=== PATIENT | male | born 1950 | race Hispanic/Latino ===

== ENCOUNTER 2018-02-16 14:31 | Inpatient (IN) | payer MEDICARE, BC ==
[~2018-02-16] VITALS: Ht 167.6 cm; Wt 66.2 kg
--- OUTSIDE RECORDS SUMMARY | 2018-02-16 14:33 | XMS REPORT ---
Author Author [facility] Address Unknown Phone Unavailable Care Team Providers Care Picking Tech Name Role Phone Unavailable Unavailable Payers Payer Name Policy Type Policy Number Effective Date Expiration Date Problems This patient has no known problems. Allergies, Adverse Reactions, Alerts Allergy Name Allergy Type Status Severity Reaction(s) Onset Date Inactive Date Treating Clinician Comments No Known Allergies DA Active U 2015-12-08 00:00:00 Medications This patient has no known medications.
[2018-02-16 15:41] LABS: BASOPHILS % 0.2 % (0.0-1.0); EOSINOPHILS # (AUTO) 0.1 (0.0-0.4); EOSINOPHILS % 0.9 % (0.0-6.0); LYMPHOCYTES # (AUTO) 1.2 (1.0-3.2); LYMPHOCYTES % 7.8 % (18.0-39.1); MEAN CORPUSCULAR HEMOGLOBIN 29.7 pg (28-32); MEAN CORPUSCULAR HGB CONC 32.1 g/dL (31-35); MEAN CORPUSCULAR VOLUME 92.4 fL (81-99); MONOCYTES # (AUTO) 1.2 (0.2-0.8); MONOCYTES % 8.2 % (4.4-11.3); NEUTROPHILS # (AUTO) 12.4 (2.1-6.9); NEUTROPHILS % 82.2 % (38.7-80.0); PLATELET COUNT 381 x10e3/uL (140-360); RED BLOOD COUNT 3.03 x10e6/uL (4.3-5.7); RED CELL DISTRIBUTION WIDTH 13.9 % (11.7-14.4)
[2018-02-16] MEDS ORDERED: GLIPIZIDE10 MG PO (15:51)
[2018-02-16] MEDS ORDERED: FERROUS SULFAT325 MG PO (15:51)
[2018-02-16] MEDS ORDERED: PANTOPRAZOLE SO40 MG PO (15:51)
[2018-02-16] MEDS ORDERED: LOPRESSOR25 MG PO (15:51)
[2018-02-16] MEDS ORDERED: ATORVASTATIN CA40 MG PO (15:51)
[2018-02-16] MEDS ORDERED: JENTADUETO 2.51 EAC2 PO (15:51)
[2018-02-16] MEDS ORDERED: CLOPIDOGREL75 MG PO (15:51)
[2018-02-16] MEDS ORDERED: LISINOPRIL2.5 MG PO (15:51)
[2018-02-16] MEDS ORDERED: PRASUGREL PO (15:51)
[2018-02-16] MEDS ORDERED: LEVEMIR (15:51)
[2018-02-16 15:52] LABS: INR 1.1; PROTHROMBIN TIME 15.2 seconds (11.9-14.5)
[2018-02-16 15:53] LABS: PARTIAL THROMBOPLASTIN TIME 28.1 seconds (23.8-35.5)
[2018-02-16 16:04] LABS: ALBUMIN 2.9 g/dL (3.5-5.0); ALBUMIN/GLOBULIN RATIO 0.7 (0.8-2.0); ANION GAP 14.3 mmol/L (8-16); CALCIUM 8.9 mg/dL (8.4-10.2); CREATININE, SERUM 1.33 mg/dL (0.72-1.25); POTASSIUM 4.3 mmol/L (3.5-5.1)
[2018-02-16 16:13] LABS: CREATINE KINASE MB 0.9 ng/mL (0-5.0)
--- NOTE | 2018-02-16 16:40 | Diagnostic Imaging Report ---
Examination: Upright chest, upright and supine abdominal radiographs COMPARISON: None. INDICATION: Fall, left flank pain, recent endoscopy DISCUSSION: Chest: Lungs are well-inflated. Coarse reticular opacities throughout the lungs. No focal consolidation. Cardiomediastinal contour is notable for tortuosity and atherosclerotic calcification of the thoracic aorta. No pulmonary edema. No free air under the diaphragm. Abdomen: The bowel gas pattern shows a few mildly dilated loops of small bowel in the central abdomen to a maximum caliber of 3.3 cm. Gas and fecal material is noted throughout the large bowel. No mass effect or organomegaly. Atherosclerotic vascular calcifications. Surgical clips project over the medial hips. Degenerative disc changes of the lumbar spine with otherwise intact regional skeletal structures. IMPRESSION: Mildly dilated loops of small bowel in the central abdomen likely represent ileus in the presence of gas and fecal material throughout the large bowel. No pneumoperitoneum. No acute cardiopulmonary abnormality. Suspected pulmonary fibrotic changes. Signed by: Dr. Trevor Felix M.D. on 02/16/2018 4:37 PM
[2018-02-16] MEDS ORDERED: SODIUM CHLORIDE 0.9% 1000ML 1,000 ML IV SCH (17:00)
[2018-02-16] MEDS: SODIUM CHLORIDE 0.9% 1000ML 1,000 ML IV SCH ×2 (17:33→22:01)
[2018-02-16 17:42] LABS: CLARITY,URINE SL CLOUDY (CLEAR); COLOR,URINE STRAW (YELLOW); LEUKOCYTE ESTERASE ,URINE NEGATIVE (NEGATIVE); NITRITE,URINE NEGATIVE (NEGATIVE)
[2018-02-16 17:43] LABS: BILIRUBIN,URINE NEGATIVE (NEGATIVE); KETONES,URINE NEGATIVE (NEGATIVE); PROTEIN,URINE DIPSTICK 1+ (NEGATIVE); URINE UROBILINOGEN 0.2 mg/dL (0.2 - 1)
[2018-02-16] MEDS ORDERED: DEXTROSE 50% SYRINGE 50 ML IV PRN (17:45)
[2018-02-16 18:09] LABS: AMORPHOUS SEDIMENT,URINE MODERATE (FEW); BACTERIA,URINE MANY /HPF
[2018-02-16 18:26] LABS: HEMATOCRIT 24.7 % (38.2-49.6)
[2018-02-16] MEDS ORDERED: PANTOPRAZOLE INJ 40 MG in SODIUM CHLORIDE 0.9% 50ML 50 ML IV SCH (20:15)
[2018-02-16] MEDS ORDERED: SODIUM CHLORIDE 0.9% 250ML 250 ML IV ONE (20:15)
[2018-02-16] MEDS ORDERED: INSULIN REGULAR, HUMAN 100 UNIT/1 ML 3ML VIAL SQ SCH (21:00)
[2018-02-16] MEDS: PANTOPRAZOLE INJ 40 MG in SODIUM CHLORIDE 0.9% 50ML 50 ML IV SCH (21:00)
[2018-02-16] MEDS ORDERED: METRONIDAZOLE 500MG/NS 100ML 100 ML IV SCH (21:00)
[2018-02-16 21:40] VITALS: BP 96/67
--- NOTE | 2018-02-16 21:40 | NUR ---
RECEIVED PT VIA W/C FROM ER, REPORT GIVEN BY ALLY HUBBARD FROM ER, PT MADE COMFORTABLE IN BED, DENIES PAIN AND DISCOMFORTS , ORIENTED TO SURROUNDINGS IN ROOM, AND CALL YATES SYSTEM. PT AAOX3, BREATHING EVEN AND UNLABORED ON ROOM AIR, HOWEVER B/P LOW, PT TO RECEIVE NS @ 125 AND 2 UNITS OF BLOOD.
[2018-02-16 22:00] VITALS: BP 95/56
[2018-02-17] VITALS (34 sets, daily range): BP systolic 73–115; BP diastolic 49–79
[2018-02-17] MEDS ORDERED: PANTOPRAZOLE 40 MG 10ML VIAL ONE ×2 (00:19→09:13)
[2018-02-17 01:14] LABS: HEMATOCRIT 24.5 % (38.2-49.6)
[2018-02-17] MEDS ORDERED: SODIUM CHLORIDE 0.9% 250ML 250 ML ONE ×2 (01:15→04:55)
--- NOTE | 2018-02-17 04:30 | NUR ---
PT DEVELOPED LOW GRADE TEMP POST BLOOD TRANSFUSIONOF 100.0, PUT A PAGE INTO DR. DE LEON [facility] TO INFORM THEM OF LOW GRADE TEMP.
--- NOTE | 2018-02-17 04:39 | NUR ---
JOSE FROM DR. DE LEON [facility] GAVE ORDER TO PROCEED WITH SECOND UNIT OF BLOOD
[2018-02-17 05:13] LABS: HEMATOCRIT 25.4 % (38.2-49.6); HEMOGLOBIN 8.5 g/dL (14.0-18.0)
--- NOTE | 2018-02-17 05:30 | NUR ---
SECOND UNIT OF BLOOD HANGING, PT TOLERATING WELL, STATES SOME PAIN TO HIS HIP FROM FALL AT HOME, OK WHEN REPOSITIONED.
[2018-02-17] MEDS: PANTOPRAZOLE INJ 40 MG in SODIUM CHLORIDE 0.9% 50ML 50 ML IV SCH ×5 (05:45→20:44)
--- NOTE | 2018-02-17 06:15 | Diagnostic Imaging Report ---
ABDOMEN-1VIEW (KUB) Clinical history: Possible ileus, resolution Technique: AP view abdomen Comparison: Previous day Findings: Hemidiaphragms are excluded from view. No significant gaseous distention of bowel. No evidence of free air. Vascular calcifications. Faint amorphous calcifications again seen of the left upper abdomen. Impression: No evidence of obstruction or ileus. Signed by: Dr Milagro eWbb MD on 02/17/2018 6:12 AM
--- NOTE | 2018-02-17 07:15 | NUR ---
REPORTED OFF TO HAYDEE MANNING, PT CONTINUES WITH BLOOD TRANSFUSION, TOLERATING WELL NO REACTION ON MY SHIFT.
[2018-02-17] MEDS ORDERED: DEXTROSE 50% SYRINGE 50 ML IV PRN (07:45)
[2018-02-17] MEDS ORDERED: HYDRALAZINE HCL 20 MG/ML VIAL IV PRN (08:00)
[2018-02-17] MEDS ORDERED: ONDANSETRON HCL INJ 2 MG/ML VIAL IV PRN (08:00)
--- NOTE | 2018-02-17 08:25 | NUR ---
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
[2018-02-17] MEDS ORDERED: CEFTRIAXONE SOD 1 GM VIAL IV SCH (08:30)
[2018-02-17] MEDS: GLIPIZIDE 5 MG TAB PO SCH ×2 (08:30→16:27)
[2018-02-17] MEDS: METOPROLOL TARTRATE 25 MG TAB PO SCH ×2 (08:48→17:00)
[2018-02-17] MEDS ORDERED: LISINOPRIL 2.5 MG TAB PO SCH (09:00)
[2018-02-17] MEDS ORDERED: NON-FORMULARY MEDICATION (Atorvastatin Calcium 40 MG) PO SCH (09:00)
[2018-02-17] MEDS ORDERED: CIPROFLOXACIN 400 MG/D5W 200ML 200 ML IV SCH (09:00)
[2018-02-17] MEDS ORDERED: PANTOPRAZOLE 40 MG 10ML VIAL IV SCH (09:00)
[2018-02-17] MEDS ORDERED: NON-FORMULARY MEDICATION (Glipizide 10 MG) PO SCH (09:00)
[2018-02-17] MEDS: METRONIDAZOLE 500MG/NS 100ML 100 ML IV SCH ×2 (09:15→17:40)
[2018-02-17] MEDS: ACETAMINOPHEN 325 MG TAB PO PRN (09:19)
[2018-02-17] MEDS: SODIUM CHLORIDE 0.9% 1000ML 1,000 ML IV SCH ×2 (09:33→17:40)
[2018-02-17 10:26] LABS: HEMATOCRIT 29.7 % (38.2-49.6); HEMOGLOBIN 10.1 g/dL (14.0-18.0); MEAN CORPUSCULAR HEMOGLOBIN 30.9 pg (28-32); MEAN CORPUSCULAR VOLUME 90.8 fL (81-99); NEUTROPHILS % 72.7 % (38.7-80.0); PLATELET COUNT 321 x10e3/uL (140-360); RED BLOOD COUNT 3.27 x10e6/uL (4.3-5.7); RED CELL DISTRIBUTION WIDTH 13.9 % (11.7-14.4)
[2018-02-17 10:27] LABS: BASOPHILS % 0.2 % (0.0-1.0); EOSINOPHILS # (AUTO) 0.5 (0.0-0.4); EOSINOPHILS % 4.6 % (0.0-6.0); LYMPHOCYTES # (AUTO) 1.5 (1.0-3.2); LYMPHOCYTES % 12.6 % (18.0-39.1); MONOCYTES # (AUTO) 1.1 (0.2-0.8); MONOCYTES % 9.3 % (4.4-11.3); NEUTROPHILS # (AUTO) 8.3 (2.1-6.9)
[2018-02-17 10:44] LABS: ANION GAP 10.1 mmol/L (8-16); CARBON DIOXIDE 22 mmol/L (22-29); CHLORIDE 110 mmol/L (98-107); POTASSIUM 4.1 mmol/L (3.5-5.1); SODIUM 138 mmol/L (136-145)
[2018-02-17 10:45] LABS: BLOOD UREA NITROGEN 13 mg/dL (7-26); BUN/CREATININE RATIO 12 (6-25); CREATININE, SERUM 1.11 mg/dL (0.72-1.25); EST GLOMERULAR FILTRATION RATE > 60 ML/MIN (60-); GLUCOSE 119 mg/dL (74-118)
[2018-02-17] MEDS: INSULIN LISPRO 100 UNIT/1 ML 3ML VIAL SQ SCH ×3 (11:30→21:00)
--- NOTE | 2018-02-17 11:34 | Diagnostic Imaging Report ---
History:Dizziness Comparison studies:None Technique: Axial images were obtained from the skull base to the vertex. Coronal and sagittal images reconstructed from the axial data. Intravenous contrast: None Dose modulation, iterative reconstruction, and/or weight based adjustment of the mA/kV was utilized to reduce the radiation dose to as low as reasonably achievable. Findings: Scalp/skull: No abnormalities. Extra-axial spaces: No masses. No fluid collections. Brain sulci: Mildly prominent. Ventricles: Mild compensatory dilatation. No hydrocephalus. Parenchyma: Few hypodensities in the supratentorial white matter are small vessel ischemic changes. Punctate calcifications at the right anterior caudate head, left hippocampus, right subcallosal and left fusiform gyri, likely related to remote inflammation. No masses, hemorrhage, acute or chronic cortical vascular insults. Sellar/suprasellar region: No abnormalities. Craniocervical junction: Patent foramen magnum. No Chiari one malformation. Incidental findings: Atherosclerotic calcifications in the carotid siphons . Impression: No acute abnormalities. Chronic findings: 1. Mild age-appropriate generalized volume loss. 2. Mild supratentorial white matter small vessel ischemic changes. Signed by: DR Gerson Vu M.D. on 02/17/2018 11:30 AM
--- NOTE | 2018-02-17 12:05 | Diagnostic Imaging Report ---
Exam: Left hip radiographs, 2 views, AP radiograph of the pelvis, left femur radiographs 4 views History: Status post fall. Comparison: KUB 02/17/2018. Findings: Bones are well-mineralized. No evidence of acute fracture involving the pelvis or left hip. Bony alignment is unremarkable. Bowel gas partially obscures visualization of the sacrum. Mild degenerative changes of bilateral hips, sacroiliac joints, and lower lumbar spine. There are surgical clips which project over the bilateral groins. There are diffuse vascular calcifications. Additional images of the left femur demonstrates no evidence of acute fracture, malalignment, or soft tissue abnormality. Impression: No evidence of acute radiographic abnormality involving the pelvis, left hip, or left femur. Signed by: Dr. Savana Parry MD on 02/17/2018 12:02 PM
[2018-02-17] MEDS: CEFTRIAXONE SOD 1 GM/NS 50 ML 50 ML IV SCH (12:15)
[2018-02-17] MEDS: CIPROFLOXACIN 400 MG/D5W 200ML 200 ML IV SCH ×2 (12:56→21:48)
[2018-02-17 13:26] LABS: BILIRUBIN,URINE NEGATIVE (NEGATIVE); CLARITY,URINE CLEAR (CLEAR); COLOR,URINE YELLOW (YELLOW); KETONES,URINE TRACE (NEGATIVE); LEUKOCYTE ESTERASE ,URINE TRACE (NEGATIVE); NITRITE,URINE NEGATIVE (NEGATIVE); PROTEIN,URINE DIPSTICK 1+ (NEGATIVE); URINE UROBILINOGEN 0.2 mg/dL (0.2 - 1)
[2018-02-17 13:39] LABS: BACTERIA,URINE FEW /HPF; EPITHELIAL CELLS,URINE RARE /LPF; RBC,URINE 0-5 /HPF (0-5); WBC,URINE (MAN) 0-5 /HPF (0-5)
[2018-02-17 16:30] LABS: HEMATOCRIT 30.1 % (38.2-49.6)
--- NOTE | 2018-02-17 19:30 | NUR ---
PATIENT ASSISTED TO THE RESTROOM, HE'S NOW BACK IN BED WITH ACUTE DISTRESS. ABDOMEN SOFT, PATIENT DENIES ABDOMINAL PAIN. SKIN INTEGRITY INTACT WITH PSORIATIC LESIONS TO THE ELBOWS, KNEES, LEGS AND LEFT ARM. CALL LIGHT WITHIN EASY REACH, INSTRUCTED TO CALL FOR ASSISTANCE NEEDED.
[2018-02-17] MEDS: ATORVASTATIN 40 MG TAB PO SCH (21:48)
[2018-02-17 22:35] LABS: HEMATOCRIT 29.8 % (38.2-49.6)
--- NOTE | 2018-02-17 23:11 | NUR ---
CLEAR LIQUID DIET STARTED ORDERED BY DR. Rowena TERAN, THE PATIENT TOLERATED THE WARM BROTH AND APPLE JUICE WITHOUT NAUSEA/VOMITING OR ABDOMINAL PAIN. CALL LIGHT WITHIN EASY REACH, INSTRUCTED TO CALL FOR ASSISTANCE NEEDED.
[2018-02-18] VITALS (39 sets, daily range): BP systolic 56–112; BP diastolic 44–92
[2018-02-18] MEDS: METRONIDAZOLE 500MG/NS 100ML 100 ML IV SCH ×3 (01:15→16:42)
[2018-02-18] MEDS: PANTOPRAZOLE INJ 40 MG in SODIUM CHLORIDE 0.9% 50ML 50 ML IV SCH ×4 (01:26→19:45)
--- NOTE | 2018-02-18 03:30 | NUR ---
PATIENT ASLEEP, HE'S EASY TO AROUSE. HE DENIES ABDOMINAL PAIN, NAUSEA AND VOMITING. CALL LIGHT WITHIN EASY REACH, INSTRUCTED TO CALL FOR ASSISTANCE NEEDED.
[2018-02-18 03:56] LABS: BASOPHILS % 0.4 % (0.0-1.0); EOSINOPHILS # (AUTO) 0.5 (0.0-0.4); EOSINOPHILS % 5.5 % (0.0-6.0); HEMOGLOBIN 9.7 g/dL (14.0-18.0); LYMPHOCYTES # (AUTO) 1.2 (1.0-3.2); LYMPHOCYTES % 13.7 % (18.0-39.1); MEAN CORPUSCULAR HGB CONC 33.4 g/dL (31-35); MEAN CORPUSCULAR VOLUME 89.8 fL (81-99); MONOCYTES # (AUTO) 0.9 (0.2-0.8); MONOCYTES % 9.7 % (4.4-11.3); NEUTROPHILS # (AUTO) 6.3 (2.1-6.9); NEUTROPHILS % 70.1 % (38.7-80.0); PLATELET COUNT 308 x10e3/uL (140-360); RED BLOOD COUNT 3.23 x10e6/uL (4.3-5.7); RED CELL DISTRIBUTION WIDTH 14.1 % (11.7-14.4)
[2018-02-18 04:12] LABS: ANION GAP 11.9 mmol/L (8-16); BLOOD UREA NITROGEN 12 mg/dL (7-26); BUN/CREATININE RATIO 11 (6-25); CALCIUM 7.9 mg/dL (8.4-10.2); CARBON DIOXIDE 20 mmol/L (22-29); CHLORIDE 110 mmol/L (98-107); EST GLOMERULAR FILTRATION RATE > 60 ML/MIN (60-); GLUCOSE 154 mg/dL (74-118); MAGNESIUM 1.8 MG/DL (1.3-2.1); POTASSIUM 3.9 mmol/L (3.5-5.1); SODIUM 138 mmol/L (136-145)
[2018-02-18] MEDS: SODIUM CHLORIDE 0.9% 1000ML 1,000 ML IV SCH ×3 (04:43→17:33)
[2018-02-18] MEDS: GLIPIZIDE 5 MG TAB PO SCH ×2 (07:30→16:42)
[2018-02-18] MEDS: OYST-CAL-D 500MG TABLET PO SCH ×2 (08:26→16:42)
[2018-02-18] MEDS: INSULIN LISPRO 100 UNIT/1 ML 3ML VIAL SQ SCH ×4 (08:35→21:41)
--- NOTE | 2018-02-18 08:35 | Diagnostic Imaging Report ---
EXAMINATION: CHEST SINGLE (PORTABLE) INDICATION: Rule out pneumonia. COMPARISON: Chest radiograph 02/16/2018. FINDINGS: TUBES and LINES: None. LUNGS: There is mild central vascular congestion. There are new mild patchy opacities at lung bases bilaterally. No evidence of lobar consolidation. Biapical pleural parenchymal opacity. PLEURA: Possible trace right pleural effusion. No evidence of pneumothorax. HEART AND MEDIASTINUM: The cardiomediastinal silhouette is unremarkable. Atherosclerotic calcifications of the aortic arch. BONES AND SOFT TISSUES: No acute osseous lesion. Soft tissues are unremarkable. UPPER ABDOMEN: No free air under the diaphragm. IMPRESSION: Patchy opacities at the lung bases which could represent atelectasis or early pneumonia in the appropriate clinical setting. Follow chest radiograph is suggested to assess for resolution. Central vascular congestion without norma pulmonary edema. Signed by: Dr. Savana Parry MD on 02/18/2018 8:31 AM
--- NOTE | 2018-02-18 09:19 | Diagnostic Imaging Report ---
CTA NECK HISTORY: Dizziness, low blood pressure COMPARISON: Head CT 02/17/2018 TECHNIQUE: CTA of the neck was performed with intravenous iodine based contrast. Coronal, sagittal, 3-D, and oblique maximum intensity projection reformations were created. One or more of the following dose reduction techniques were used: Automated exposure control, adjustment of the mA and/or kV according to patient size, and/or utilization of iterative reconstruction technique. Motion artifacts obscure some details. DISCUSSION: If present, any cervical carotid stenosis will be measured as a percentage relative to the [place] artery distal to the stenosis. CERVICAL CTA: Scattered atherosclerotic calcifications are seen in the aortic arch and proximal great vessels. There is mild to moderate focal stenosis in the innominate artery. Mild focal stenosis is seen in the proximal left common carotid artery. There is severe focal stenosis in the proximal left subclavian artery (near occlusion). Right Carotid: Mild to moderate calcified plaque at the right carotid bulb does not cause significant stenosis. Left Carotid: Mild to moderate calcified plaque at the left carotid bulb causes focal 50-69% focal stenosis in the proximal left internal carotid artery. Right vertebral artery: The V1 segment is not clearly opacified. There is diminished filling in the proximal V2 segment. The distal V2 and V3 segments are grossly patent. Left vertebral artery: There is severe focal stenosis at the ostium of the left vertebral artery. Otherwise, patent and without abnormality. The left vertebral artery is dominant. The intracranial arterial vasculature is partially visualized. The right vertebral artery may terminate as the right posterior inferior cerebellar artery, a normal variant. Bilateral carotid siphon calcifications are present. Right posterior communicating artery is partially visualized. Additional findings: Scarring and paraseptal emphysematous changes are seen in the upper lungs. Mild scattered paranasal sinus mucosal thickening is nonspecific. Trace bilateral mastoid effusions are present. There are mild to moderate degenerative changes throughout the spine. IMPRESSION: 1. Severe focal stenosis (near occlusion) in the proximal left subclavian artery. 2. Severe focal stenosis at the left vertebral artery ostium. The left V2, V3, and V4 segments are patent. 3. Age indeterminate severe focal stenosis or occlusion of the right vertebral artery V1 segment. The right V2, V3, and V4 segments are grossly patent. 4. Focal 50-69% stenosis in the proximal left internal carotid artery due to calcified plaque. 5. Mild to moderate right carotid bulb calcified plaque without significant stenosis. Signed by: Dr. Erik Moore M.D. on 02/18/2018 9:16 AM
[2018-02-18] MEDS: CEFTRIAXONE SOD 1 GM/NS 50 ML 50 ML IV SCH (10:46)
[2018-02-18] MEDS ORDERED: SODIUM CHLORIDE 0.9% 100 ML 100 ML ONE (10:52)
[2018-02-18] MEDS ORDERED: IOPAMIDOL 370 MG/ML 200 ML INFUS..BTL INJ ONE (10:53)
[2018-02-18 11:37] LABS: HEMATOCRIT 29.8 % (38.2-49.6); HEMOGLOBIN 9.9 g/dL (14.0-18.0)
[2018-02-18] MEDS: CIPROFLOXACIN 400 MG/D5W 200ML 200 ML IV SCH ×2 (11:45→21:34)
[2018-02-18] MEDS: ACETAMINOPHEN 325 MG TAB PO PRN (14:04)
--- NOTE | 2018-02-18 14:30 | NUR ---
Pt's VS positive for orthostatic, reports dizziness for a few seconds upon standing. Reported L lateral calf pain upon standing, prn acetaminophen given. Pt ambulated down rosa with standby assist, limped, returned after stating that his leg pain was limiting him. Heating pad applied, pt reported relief.
--- NOTE | 2018-02-18 17:35 | NUR ---
BLAKE Irby paged to inform that pt's BP continues to be low with MAPs <60, reports dizziness upon standing but is able to ambulate to BR limited by LLE pain. No new orders for bolus rec'd, HYDRO PLANT SITE MANAGER stated that a rapid response should be called if pt continues to be symptomatically hypotensive. BLAKE Irby informed that pt has seen MD Bassett in OP settings and would prefer him for continuity of care, but will accept the first CT surgeon who consults him and can preferably perform procedures at [facility]. Both MD Zhang and MD Asif Bassett paged, awaiting response.
--- NOTE | 2018-02-18 18:08 | NUR ---
Pt's bedside monitor adjusted, IV arms switched, and BP cuff changed, VSS
--- NOTE | 2018-02-18 18:15 | NUR ---
Pt continues to report lateral LLE pain, states that it is similar to the pain he feels when his leg gets cold. Pt states that he had a "tube" placed in his LLE, unable to recall which procedure it was, states that it was not a grafted vessel. Daughter states that she thinks that it is a stent, and that MD Bassett placed it. Pt's LLE warm, DP pulse palpable, cap refill brisk. Reports mild tingling in L toes. States that pain is relieved by heat, exacerbated with ambulation.
--- NOTE | 2018-02-18 18:45 | NUR ---
METAL PRODUCTS VIEWER Mahamed notified that pt's VS improved with monitor troubleshooting and limb switches with cuffs and IVs. Also notified that pt reports LLE pain similar to prior to stent insertion, and when his leg gets cold. Notified of status of feet, METAL PRODUCTS VIEWER states that doppler is not needed at time, and to cancel MST order until further notice. Will continue to monitor pt with frequent pulse, sensation, and cap refill checks.
--- NOTE | 2018-02-18 20:15 | NUR ---
PATIENT CONDITION STABLE WITHOUT DISTRESS, HE DENIES ABDOMINAL PAIN, NAUSEA/VOMITING. CALL LIGHT WITHIN EASY REACH, HE'S INSTRUCTED TO CALL FOR ASSISTANCE NEEDED.
[2018-02-18] MEDS: ATORVASTATIN 40 MG TAB PO SCH (21:34)
[2018-02-18 23:49] LABS: FERRITIN 93.64 ng/mL (21.81-274.66)
[2018-02-19] VITALS (13 sets, daily range): BP systolic 92–171; BP diastolic 61–76
[2018-02-19] MEDS: SODIUM CHLORIDE 0.9% 1000ML 1,000 ML IV SCH (00:55)
[2018-02-19] MEDS: METRONIDAZOLE 500MG/NS 100ML 100 ML IV SCH ×3 (01:33→16:36)
[2018-02-19] MEDS: PANTOPRAZOLE INJ 40 MG in SODIUM CHLORIDE 0.9% 50ML 50 ML IV SCH ×6 (01:33→23:14)
--- NOTE | 2018-02-19 01:45 | NUR ---
PATIENT IS ASLEEP, HE'S EASY TO AROUSE. NO RESPIRATORY DISTRESS OBSERVED, HE DENIES PAIN. CALL LIGHT WITHIN EASY REACH, INSTRUCTED TO CALL FOR ASSISTANCE NEEDED.
[2018-02-19 05:10] LABS: BASOPHILS % 0.2 % (0.0-1.0); EOSINOPHILS # (AUTO) 0.4 (0.0-0.4); EOSINOPHILS % 3.9 % (0.0-6.0); HEMATOCRIT 29.8 % (38.2-49.6); HEMOGLOBIN 9.9 g/dL (14.0-18.0); LYMPHOCYTES # (AUTO) 1.2 (1.0-3.2); LYMPHOCYTES % 11.3 % (18.0-39.1); MEAN CORPUSCULAR HEMOGLOBIN 29.8 pg (28-32); MEAN CORPUSCULAR HGB CONC 33.2 g/dL (31-35); MEAN CORPUSCULAR VOLUME 89.8 fL (81-99); MONOCYTES # (AUTO) 0.9 (0.2-0.8); MONOCYTES % 8.7 % (4.4-11.3); NEUTROPHILS # (AUTO) 7.6 (2.1-6.9); NEUTROPHILS % 75.4 % (38.7-80.0); PLATELET COUNT 345 x10e3/uL (140-360); RED BLOOD COUNT 3.32 x10e6/uL (4.3-5.7); RED CELL DISTRIBUTION WIDTH 14.1 % (11.7-14.4)
--- NOTE | 2018-02-19 05:21 | NUR ---
NO ACUTE DISTRESS OBSERVED, PATIENT DENIES ABDOMINAL PAIN, NAUSEA AND VOMITING. NO ACTIVE GI BLEEDING NOTED, CALL LIGHT WITHIN EASY REACH.
[2018-02-19 05:30] LABS: ANION GAP 11.8 mmol/L (8-16); BLOOD UREA NITROGEN 9 mg/dL (7-26); BUN/CREATININE RATIO 8 (6-25); CALCIUM 8.1 mg/dL (8.4-10.2); CARBON DIOXIDE 20 mmol/L (22-29); CHLORIDE 110 mmol/L (98-107); CREATININE, SERUM 1.08 mg/dL (0.72-1.25); EST GLOMERULAR FILTRATION RATE > 60 ML/MIN (60-); GLUCOSE 97 mg/dL (74-118); MAGNESIUM 1.7 MG/DL (1.3-2.1); POTASSIUM 3.8 mmol/L (3.5-5.1); SODIUM 138 mmol/L (136-145)
[2018-02-19] MEDS: GLIPIZIDE 5 MG TAB PO SCH ×2 (08:36→16:36)
[2018-02-19] MEDS: OYST-CAL-D 500MG TABLET PO SCH ×2 (08:37→16:36)
[2018-02-19] MEDS: CIPROFLOXACIN 400 MG/D5W 200ML 200 ML IV SCH ×2 (08:37→21:04)
[2018-02-19] MEDS: INSULIN LISPRO 100 UNIT/1 ML 3ML VIAL SQ SCH ×4 (08:45→21:05)
[2018-02-19] MEDS: CEFTRIAXONE SOD 1 GM/NS 50 ML 50 ML IV SCH (10:45)
[2018-02-19] MEDS: METOPROLOL TARTRATE 25 MG TAB PO SCH (11:37)
[2018-02-19] MEDS: ATORVASTATIN 40 MG TAB PO SCH (21:04)
[2018-02-20] VITALS (9 sets, daily range): BP systolic 83–126; BP diastolic 56–83
[2018-02-20] MEDS: METRONIDAZOLE 500MG/NS 100ML 100 ML IV SCH ×3 (00:37→16:15)
[2018-02-20] MEDS: PANTOPRAZOLE INJ 40 MG in SODIUM CHLORIDE 0.9% 50ML 50 ML IV SCH ×4 (04:48→21:30)
[2018-02-20] MEDS: HYDROCODONE/APAP 5MG-325MG TAB PO PRN ×2 (04:58→22:37)
[2018-02-20 05:03] LABS: BASOPHILS % 0.4 % (0.0-1.0); EOSINOPHILS # (AUTO) 0.4 (0.0-0.4); EOSINOPHILS % 3.9 % (0.0-6.0); HEMATOCRIT 31.9 % (38.2-49.6); HEMOGLOBIN 10.5 g/dL (14.0-18.0); LYMPHOCYTES # (AUTO) 1.3 (1.0-3.2); LYMPHOCYTES % 12.7 % (18.0-39.1); MEAN CORPUSCULAR HEMOGLOBIN 29.7 pg (28-32); MEAN CORPUSCULAR HGB CONC 32.9 g/dL (31-35); MEAN CORPUSCULAR VOLUME 90.1 fL (81-99); MONOCYTES % 9.5 % (4.4-11.3); NEUTROPHILS # (AUTO) 7.4 (2.1-6.9); NEUTROPHILS % 73.1 % (38.7-80.0); PLATELET COUNT 380 x10e3/uL (140-360); RED BLOOD COUNT 3.54 x10e6/uL (4.3-5.7); RED CELL DISTRIBUTION WIDTH 13.9 % (11.7-14.4)
--- NOTE | 2018-02-20 05:18 | NUR ---
Received patient calm in bed, no complaints raised
[2018-02-20 05:20] LABS: CALCIUM 8.5 mg/dL (8.4-10.2); CREATININE, SERUM 1.29 mg/dL (0.72-1.25); MAGNESIUM 1.8 MG/DL (1.3-2.1)
[2018-02-20] MEDS ORDERED: ASCORBIC ACID500 MG PO (06:20)
[2018-02-20] MEDS ORDERED: SODIUM CHLORIDE 0.9% 50ML 100 ML ONE (07:51)
[2018-02-20] MEDS ORDERED: PANTOPRAZOLE 40 MG 10ML VIAL ONE (07:51)
[2018-02-20] MEDS: INSULIN LISPRO 100 UNIT/1 ML 3ML VIAL SQ SCH ×4 (08:02→21:00)
[2018-02-20] MEDS: GLIPIZIDE 5 MG TAB PO SCH ×2 (08:14→16:14)
[2018-02-20] MEDS: METOPROLOL TARTRATE 25 MG TAB PO SCH ×3 (08:14→16:39)
[2018-02-20] MEDS: OYST-CAL-D 500MG TABLET PO SCH ×2 (08:16→16:15)
[2018-02-20] MEDS: CIPROFLOXACIN 400 MG/D5W 200ML 200 ML IV SCH ×2 (08:16→21:00)
[2018-02-20] MEDS: CEFTRIAXONE SOD 1 GM/NS 50 ML 50 ML IV SCH (11:29)
--- NOTE | 2018-02-20 16:44 | NUR ---
left voice message at Dr. Bassett's office ([facility]urses [facility]) for consult on patient.
--- NOTE | 2018-02-20 17:16 | NUR ---
spoke with Yazmin at Dr. Torres's office. consult not received over weekend but she will notify Dr. Torres to see patient.
--- NOTE | 2018-02-20 19:06 | NUR ---
gave report to overnight caregiver
--- NOTE | 2018-02-20 19:30 | NUR ---
Received patient calm in bed no complaints raised
[2018-02-20] MEDS: ATORVASTATIN 40 MG TAB PO SCH (21:00)
--- NOTE | 2018-02-20 23:00 | NUR ---
patient calmly asleep, easy to arouse. all due medications administered as prescribed
[2018-02-21] VITALS: BP 116/63
[2018-02-21] MEDS: METRONIDAZOLE 500MG/NS 100ML 100 ML IV SCH ×2 (01:00→09:10)
[2018-02-21] MEDS: PANTOPRAZOLE INJ 40 MG in SODIUM CHLORIDE 0.9% 50ML 50 ML IV SCH ×2 (02:30→09:07)
[2018-02-21 04:00] VITALS: BP 127/72
[2018-02-21 05:12] LABS: BASOPHILS % 0.3 % (0.0-1.0); EOSINOPHILS # (AUTO) 0.5 (0.0-0.4); EOSINOPHILS % 5.1 % (0.0-6.0); HEMATOCRIT 33.1 % (38.2-49.6); HEMOGLOBIN 10.9 g/dL (14.0-18.0); LYMPHOCYTES # (AUTO) 1.5 (1.0-3.2); LYMPHOCYTES % 15.3 % (18.0-39.1); MEAN CORPUSCULAR HEMOGLOBIN 29.6 pg (28-32); MEAN CORPUSCULAR HGB CONC 32.9 g/dL (31-35); MEAN CORPUSCULAR VOLUME 89.9 fL (81-99); MONOCYTES # (AUTO) 1.1 (0.2-0.8); MONOCYTES % 10.4 % (4.4-11.3); NEUTROPHILS # (AUTO) 6.9 (2.1-6.9); NEUTROPHILS % 68.5 % (38.7-80.0); PLATELET COUNT 414 x10e3/uL (140-360); RED BLOOD COUNT 3.68 x10e6/uL (4.3-5.7); RED CELL DISTRIBUTION WIDTH 13.7 % (11.7-14.4)
[2018-02-21] MEDS: HYDROCODONE/APAP 5MG-325MG TAB PO PRN (05:12)
[2018-02-21 05:30] LABS: ANION GAP 12.9 mmol/L (8-16); CALCIUM 8.4 mg/dL (8.4-10.2); CREATININE, SERUM 1.27 mg/dL (0.72-1.25); POTASSIUM 3.9 mmol/L (3.5-5.1)
--- NOTE | 2018-02-21 07:11 | NUR ---
Handed over stable
[2018-02-21] MEDS: INSULIN LISPRO 100 UNIT/1 ML 3ML VIAL SQ SCH ×2 (07:52→12:18)
[2018-02-21 08:00] VITALS: BP 103/58
--- NOTE | 2018-02-21 08:28 | NUR ---
PT HAS CAROTID CRITICAL LESION AWAIT DR HENRY TO SEE PT FOR POSSIBLE SURGERY
[2018-02-21] MEDS ORDERED: IRON SUCROSE 100 MG in SODIUM CHLORIDE 0.9% 100 ML 100 ML IV SCH (09:00)
[2018-02-21] MEDS: GLIPIZIDE 5 MG TAB PO SCH (09:08)
[2018-02-21] MEDS: OYST-CAL-D 500MG TABLET PO SCH (09:08)
[2018-02-21] MEDS: CIPROFLOXACIN 400 MG/D5W 200ML 200 ML IV SCH (09:10)
[2018-02-21] MEDS: CEFTRIAXONE SOD 1 GM/NS 50 ML 50 ML IV SCH (09:11)
[2018-02-21 10:00] VITALS: BP 106/59
[2018-02-21 12:00] VITALS: BP 129/76
--- NOTE | 2018-02-21 12:14 | NUR ---
Spoke with Dr Bassett who states he will see the patient in clinic; patient and his family aware and agreeable. Paged Teressa Irby NP for Dr Angel who agrees and will plan to discharge patient today. Dr Samantha Bonilla paged and awaiting call back.
--- NOTE | 2018-02-21 13:25 | NUR ---
Per Dr Danyelle Arce's RN, she rec'd all information she needs. Spoke with Dr Samantha Bonilla; final discharge orders and prescription rec'd.
--- NOTE | 2018-02-21 14:05 | NUR ---
Patient discharged home via wheelchair to private auto in care of .
--- NOTE | 2018-02-21 18:17 | Discharge Summary ---
ADMISSION DIAGNOSES 1. Gastrointestinal bleed. 2. Hypotension with a history of hypertension. 3. Type 2 diabetes. 4. Hyperlipidemia. 5. Syncope. 6. Left hip pain. 7. Ileus. 8. Acute kidney injury versus chronic kidney disease. 9. Urinary tract infection. DISCHARGE DIAGNOSES 1. Gastrointestinal bleed. 2. Hypotension with a history of hypertension. 3. Type 2 diabetes. 4. Hyperlipidemia. 5. Syncope. 6. Left hip pain. 7. Ileus. 8. Acute kidney injury versus chronic kidney disease. 9. Urinary tract infection. 10. Severe bilateral carotid stenosis. HISTORY: Patient has a history of hypertension, hyperlipidemia, type 2 diabetes, GERD, PUD, gastritis, PVD, [place] with stents in 2016. SURGICAL HISTORY: Triple-A repair. FAMILY HISTORY: Patient's sister has cancer. Patient's father had a stroke. SOCIAL HISTORY: Patient admits to quitting smoking about 3-4 years ago. He smoked for about 15 years before quitting. He denies alcohol and illicit drug use. HOSPITAL COURSE: A 67-year-old male complains of coffee-ground emesis since Tuesday. He went to his PCP, Dr. Concepcion, who sent him to the ER. Last Tuesday, he was admitted to [facility] and had an EGD, and was sent home with Protonix and iron on Tuesday. By Tuesday, he was in the restroom when he passed out while blowing his nose. He hit his left hip and has not walked since. On admission, the patient was started on PPI drip, Cipro and Flagyl. Plavix and Proctagral were held. Patient given 2 units of PRBCs. Bilateral carotid showed stenosis. A CTA of the neck was ordered. EKG showed normal sinus rhythm. Abdominal series showed mildly dilated loops of small bowel likely represents ileus. The next morning a KUB was repeated, which was negative. X-ray of the left hip and femur were negative. CT of the brain was negative. CTA of the neck showed severe focal stenosis near occlusion in the proximal left subclavian artery. Mild to moderate right bulb calcified plaque without significant stenosis. On admission, the patient's hemoglobin was 9 and quickly dropped to 8 a few hours later. Stool for blood was positive. Urine culture is negative. Blood culture is negative. After a few days of the Protonix drip, GI has cleared the patient for discharge as he is tolerating food well and his hemoglobin has been stable. CV surgery was consulted due to the left carotid stenosis. He will discharge home and follow up outpatient per CV surgery recommendation. Patient will continue home medicines, which included iron and Protonix. He will be given a prescription for ascorbic acid. He still stop taking the Proctagral due to the GI bleed as he is already taking Plavix. Patient understands discharge instructions and agrees to plan. Vital signs stable. Patient afebrile. DICTATED BY JOSE CASTRO NP MARI DEE MD Job#: [id number] ND
== END 2018-02-21 14:12 | disposition home or self-care (01) | DRG 378 ==
LOC: ER 14:31 → ERHOLD 18:08 → OBSVTOIN 19:58 → IMCU 21:26
PROVIDERS: ADMIT Internal Medicine; ATTEND Internal Medicine
PROC: 30233N1 Transfusion of Nonautologous Red Blood Cells into Peripheral Vein, Percutaneous Approach (ICD-10-PCS; principal; 2018-02-16)
DX: K92.2 Gastrointestinal hemorrhage, unspecified (principal); N39.0 Urinary tract infection, site not specified; N17.9 Acute kidney failure, unspecified; K56.7 Ileus, unspecified; I95.9 Hypotension, unspecified; I10 Essential (primary) hypertension; E11.9 Type 2 diabetes mellitus without complications; E78.5 Hyperlipidemia, unspecified; I65.23 Occlusion and stenosis of bilateral carotid arteries; M25.552 Pain in left hip; Z87.11 Personal history of peptic ulcer disease; I25.2 Old myocardial infarction; K29.70 Gastritis, unspecified, without bleeding; Z87.891 Personal history of nicotine dependence; E83.51 Hypocalcemia; I25.10 Atherosclerotic heart disease of native coronary artery without angina pectoris; W19.XXXA Unspecified fall, initial encounter; W01.0XXA Fall on same level from slipping, tripping and stumbling without subsequent striking against object, initial encounter
CPT/HCPCS: 36415; 70450; 70498; 71045; 74018; 74022; 80048; 80053; 81001; 82150; 82270; 82550; 82553; 82607; 82728; 82746; 82948; 83036; 83540; 83690; 83735; 83880; 84466; 84484; 85014; 85018; 85025; 85045; 85610; 85730; 86850; 86900; 86920; 87040; 87086; 93005; 93880; 96360; 96367; 96372; 97139; 99284; J0696; J1756; J2405; J7030; J7050; P9016; Q9967

== ENCOUNTER → 2018-05-10 | Day surgery (SDC) | payer BC, MEDICARE ==
[2018-05-08 09:16] LABS: BASOPHILS # (AUTO) 0.1 (0.0-0.1); BASOPHILS % 0.6 % (0.0-1.0); EOSINOPHILS # (AUTO) 0.4 (0.0-0.4); EOSINOPHILS % 5.1 % (0.0-6.0); HEMATOCRIT 40.1 % (38.2-49.6); HEMOGLOBIN 12.8 g/dL (14.0-18.0); LYMPHOCYTES # (AUTO) 1.7 (1.0-3.2); LYMPHOCYTES % 20.4 % (18.0-39.1); MEAN CORPUSCULAR HEMOGLOBIN 29.6 pg (28-32); MEAN CORPUSCULAR HGB CONC 31.9 g/dL (31-35); MEAN CORPUSCULAR VOLUME 92.6 fL (81-99); MONOCYTES # (AUTO) 0.8 (0.2-0.8); MONOCYTES % 9.3 % (4.4-11.3); NEUTROPHILS # (AUTO) 5.3 (2.1-6.9); NEUTROPHILS % 64.4 % (38.7-80.0); PLATELET COUNT 205 x10e3/uL (140-360); RED BLOOD COUNT 4.33 x10e6/uL (4.3-5.7); RED CELL DISTRIBUTION WIDTH 14.3 % (11.7-14.4)
[~2018-05-10] MED LIST: ASCORBIC ACID500 MG PO; ASPIRIN81 MG PO; ATORVASTATIN CA40 MG PO; CLOPIDOGREL75 MG PO; COREG3.125 MG PO; DEXTROSE 5% 250ML 250 ML IV ONE; EPHEDRINE SULFATE INJ 50 MG/10 ML SYR ONE; FENTANYL CITRATE/PF 100MCG/2 ML INJ ONE; FERROUS SULFAT325 MG PO; GLIPIZIDE10 MG PO; JENTADUETO 2.51 EAC2 PO; LEVEMIR; LISINOPRIL2.5 MG PO; LOPRESSOR25 MG PO; MIDAZOLAM HCL 2 MG/2 ML VIAL ONE; PANTOPRAZOLE SO40 MG PO; PENTOXIFYLLINE400 MG PO; PRASUGREL PO; PROPOFOL IV EMULSION 10 MG/ML 50 ML VIAL ONE; SUCRALFATE1 GM PO
[2018-05-10 10:45] VITALS: BP 119/57
--- NOTE | 2018-05-10 13:57 | Operative Report ---
DATE OF PROCEDURE: 05/10/2018 SURGEON: Moise Bonilla MD INDICATIONS FOR EGD: History of bleeding duodenal ulcer. MEDICATION: The patient was done under MAC, please see anesthesiologist's note. PROCEDURE IN DETAIL: With the patient in left lateral decubitus position, flexible fiberoptic Olympus gastroscope was introduced into the esophagus under direct visualization without any difficulty. There was some patchy erythema noted in the distal esophagus. The scope was then advanced with ease into the stomach traversing a small sliding hiatal hernia. Mucosa overlying the antrum and the body revealed some patchy erythema and [id number] edema and biopsies were obtained, sent to stain for H. pylori. The pylorus was of normal contour and shape, was intubated with ease, and the scope was advanced all the way to the second portion of the duodenum. The scope was then withdrawn slowly and mucosa overlying the proximal second portion grossly appeared to be within normal limits. Biopsies were obtained to rule out sprue. The previously described duodenal ulcer in the distal bulb appeared to have healed. The scope was then withdrawn back into the stomach and retroflexed. Mucosa overlying the fundus and the cardia appeared to be within normal limits. The scope was then straightened out. It was subsequently withdrawn. The patient tolerated the procedure well. IMPRESSION: 1. Distal esophagitis, mild. 2. Small sliding hiatal hernia. 3. Gastritis, biopsied, biopsies sent to stain for H. pylori. 4. Previously described duodenal ulcer, bulb, appears to be well healed. PLAN: Follow up histology. Continue Protonix 40 mg one p.o. a.c. b.i.d. and Carafate 1 g p.o. a.c. t.i.d. and at bedtime. Moise Bonilla MD [facility]/MODL /[id number] cc: Mynor Concepcion III, MD
== END | disposition home or self-care (01) ==
LOC: OR 06:07
PROVIDERS: ATTEND Internal Medicine Gastroenterology
DX: K25.9 Gastric ulcer, unspecified as acute or chronic, without hemorrhage or perforation (principal); D64.9 Anemia, unspecified; K92.1 Melena; Z86.010 Personal history of colon polyps; I10 Essential (primary) hypertension; Z88.8 Allergy status to other drugs, medicaments and biological substances; E11.9 Type 2 diabetes mellitus without complications; I25.10 Atherosclerotic heart disease of native coronary artery without angina pectoris; K20.9 Esophagitis, unspecified; K29.70 Gastritis, unspecified, without bleeding; K44.9 Diaphragmatic hernia without obstruction or gangrene; Z79.4 Long term (current) use of insulin; Z01.812 Encounter for preprocedural laboratory examination
CPT/HCPCS: 36415; 43239; 85025; J2250; J2704; J7070

== ENCOUNTER 2018-12-24 13:33 | Observation (INO) | payer BC, MEDICARE ==
[~2018-12-24] VITALS: Ht 320 cm; Wt 66.2 kg
[~2018-12-24 13:33] MED LIST changes: -DEXTROSE 5% 250ML 250 ML IV ONE; -EPHEDRINE SULFATE INJ 50 MG/10 ML SYR ONE; -FENTANYL CITRATE/PF 100MCG/2 ML INJ ONE; -MIDAZOLAM HCL 2 MG/2 ML VIAL ONE; -PROPOFOL IV EMULSION 10 MG/ML 50 ML VIAL ONE
--- NOTE | 2018-12-24 14:00 | NUR ---
DR. URBINA/HONGN.P. IN TO SEE THE PT. BEDSIDE GLUCOSE--[id number]
[2018-12-24] MEDS ORDERED: SODIUM CHLORIDE 0.9% 1000ML 1,000 ML IV STA (14:10)
[2018-12-24] MEDS ORDERED: INSULIN REGULAR, HUMAN 100 UNIT/1 ML 3ML VIAL IV ONE (14:30)
[2018-12-24 14:34] LABS: BASOPHILS % 0.2 % (0.0-1.0); HEMATOCRIT 37.7 % (38.2-49.6); HEMOGLOBIN 11.9 g/dL (14.0-18.0); LYMPHOCYTES # (AUTO) 0.8 (1.0-3.2); LYMPHOCYTES % 8.1 % (18.0-39.1); MEAN CORPUSCULAR HEMOGLOBIN 31.1 pg (28-32); MEAN CORPUSCULAR HGB CONC 31.6 g/dL (31-35); MEAN CORPUSCULAR VOLUME 98.4 fL (81-99); MONOCYTES # (AUTO) 0.7 (0.2-0.8); MONOCYTES % 7.3 % (4.4-11.3); NEUTROPHILS # (AUTO) 8.5 (2.1-6.9); PLATELET COUNT 176 x10e3/uL (140-360); RED BLOOD COUNT 3.83 x10e6/uL (4.3-5.7); RED CELL DISTRIBUTION WIDTH 13.7 % (11.7-14.4)
[2018-12-24 14:36] LABS: BILIRUBIN,URINE NEGATIVE (NEGATIVE); CLARITY,URINE CLEAR (CLEAR); COLOR,URINE YELLOW (YELLOW); KETONES,URINE NEGATIVE (NEGATIVE); LEUKOCYTE ESTERASE ,URINE NEGATIVE (NEGATIVE); NITRITE,URINE NEGATIVE (NEGATIVE); PROTEIN,URINE DIPSTICK TRACE (NEGATIVE); URINE UROBILINOGEN 0.2 mg/dL (0.2 - 1)
[2018-12-24 14:46] LABS: ALANINE AMINOTRANSFERASE 13 IU/L (0-55); ALBUMIN 3.8 g/dL (3.5-5.0); ALBUMIN/GLOBULIN RATIO 1.1 (0.8-2.0); ALKALINE PHOSPHATASE 115 IU/L (40-150); ANION GAP 20.1 mmol/L (8-16); BLOOD UREA NITROGEN 48 mg/dL (7-26); BUN/CREATININE RATIO 19 (6-25); CALCIUM 9.8 mg/dL (8.4-10.2); CARBON DIOXIDE 20 mmol/L (22-29); CHLORIDE 97 mmol/L (98-107); CREATINE KINASE 179 IU/L (30-200); CREATININE, SERUM 2.49 mg/dL (0.72-1.25); EST GLOMERULAR FILTRATION RATE 26 ML/MIN (60-); SODIUM 132 mmol/L (136-145)
[2018-12-24 14:47] LABS: POTASSIUM 5.1 mmol/L (3.5-5.1)
[2018-12-24 14:49] LABS: BACTERIA,URINE FEW /HPF
[2018-12-24 14:49] LABS: GLUCOSE 699 mg/dL (74-118)
--- NOTE | 2018-12-24 15:02 | Diagnostic Imaging Report ---
Examination: Single AP view of the chest. COMPARISON: 02/18/2018 INDICATION: Hyperglycemia DISCUSSION: Lines/tubes: None. Lungs: The lungs are well inflated and clear. There is no evidence of pneumonia or pulmonary edema. Pleura: There is no pleural effusion or pneumothorax. Heart and mediastinum: The heart and the mediastinum are unremarkable. Bones and soft tissues: No acute bony abnormalities. IMPRESSION: 1. No acute cardiopulmonary abnormalities. Signed by: Dr. Trevor Felix M.D. on 12/24/2018 2:58 PM
[2018-12-24 15:52] LABS: ABG HCO3 18 mmol/L (23-28); ABG PCO2 32 mmHg (41-51); ABG PH 7.34 (7.31-7.41); ABG PO2 76 mmHg (80-105)
--- NOTE | 2018-12-24 16:46 | NUR ---
1 more liter of n.s. ordered and hung
[2018-12-24] MEDS ORDERED: SODIUM CHLORIDE 0.9% 1000ML 1,000 ML ONE (16:49)
[2018-12-24] MEDS ORDERED: DEXTROSE 50% SYRINGE 50 ML IV PRN (17:00)
[2018-12-24] MEDS ORDERED: ONDANSETRON HCL INJ 2MG/ML 2ML 2 MG/ML VIAL IV PRN (17:00)
[2018-12-24] MEDS: SODIUM CHLORIDE 0.9% 1000ML 1,000 ML IV SCH (17:00)
[2018-12-24] MEDS ORDERED: PIOGLITAZONE HC45 MG PO (17:36)
[2018-12-24] MEDS ORDERED: GABAPENTIN300 MG PO (17:36)
[2018-12-24] MEDS ORDERED: NOVOLOG MI100 UNIT/1 SQ ×2 (17:46)
[2018-12-24] MEDS: INSULIN LISPRO 100 UNIT/1 ML 3ML VIAL SQ SCH ×2 (17:47→20:52)
--- NOTE | 2018-12-24 17:47 | NUR ---
blood sugar--370;do not give insulin 'til pt has dinner tray per dr. doty.
[2018-12-24 18:26] VITALS: BP 114/56
[2018-12-24 18:27] VITALS: BP 114/56
--- NOTE | 2018-12-24 18:37 | NUR ---
PT ORIENTED TO ROOM AND CALL LIGHT. PT ALERT AND ORIENTED X4. IV CONNECTED TO NS AT 100CC/HR ORDERED AT THIS TIME. PAIN DENIES ANY C/O PAIN, DIZZINESS, NAUSEA, OR WEAKNESS. PT AND SON ARE PRESENT AT BEDSIDE. WILL CONTINUE TO MONITOR.
--- NOTE | 2018-12-24 19:00 | NUR ---
Received patient from day nurse, patient is alert and oriented x4. patient is currently on room air. Introduced self to patient and safety and fall precautions maintained as per hospital protocol: bed in lowest position and locked, needed items beside bed, call garcia placed close to patient, patient in yellow socks, bed alarm activated, patient informed to always call for help. patient is currently stable will continue to monitor.
[2018-12-24] MEDS ORDERED: HYDRALAZINE HCL 20 MG/ML VIAL IV PRN (19:15)
[2018-12-24] MEDS ORDERED: ACETAMINOPHEN/CODEINE 300MG - 30MG TAB PO PRN (19:15)
[2018-12-24] MEDS ORDERED: ACETAMINOPHEN 325 MG TAB PO PRN (19:15)
[2018-12-24 20:41] VITALS: BP 125/61
[2018-12-24] MEDS: CLOPIDOGREL BISULFATE 75 MG TAB PO SCH (20:50)
[2018-12-24] MEDS: ASPIRIN 81 MG CHEW TAB PO SCH (20:50)
[2018-12-24] MEDS: GABAPENTIN 300 MG CAP PO SCH (20:50)
[2018-12-24] MEDS: ATORVASTATIN 40 MG TAB PO SCH (20:50)
[2018-12-24] MEDS: LISINOPRIL 2.5 MG TAB PO SCH (20:52)
[2018-12-24 21:13] VITALS: BP 125/61
--- NOTE | 2018-12-24 21:27 | NUR ---
Dr. Cardenas called and message left for patient's bp.
[2018-12-24] MEDS ORDERED: PIOGLITAZONE HCL 15 MG TAB PO ONE (23:15)
[2018-12-25] VITALS (8 sets, daily range): BP systolic 106–129; BP diastolic 53–62
[2018-12-25 03:19] LABS: BASOPHILS % 0.1 % (0.0-1.0); EOSINOPHILS % 0.3 % (0.0-6.0); HEMATOCRIT 30.3 % (38.2-49.6); HEMOGLOBIN 10.2 g/dL (14.0-18.0); LYMPHOCYTES # (AUTO) 0.9 (1.0-3.2); LYMPHOCYTES % 12.3 % (18.0-39.1); MEAN CORPUSCULAR HEMOGLOBIN 31.8 pg (28-32); MEAN CORPUSCULAR HGB CONC 33.7 g/dL (31-35); MONOCYTES # (AUTO) 0.5 (0.2-0.8); MONOCYTES % 6.1 % (4.4-11.3); NEUTROPHILS # (AUTO) 6.1 (2.1-6.9); NEUTROPHILS % 80.4 % (38.7-80.0); PLATELET COUNT 140 x10e3/uL (140-360); RED BLOOD COUNT 3.21 x10e6/uL (4.3-5.7); RED CELL DISTRIBUTION WIDTH 13.7 % (11.7-14.4)
[2018-12-25 03:21] LABS: MEAN CORPUSCULAR VOLUME 94.4 fL (81-99)
--- NOTE | 2018-12-25 03:34 | Consultation ---
DATE OF CONSULTATION: 12/24/2018 Dr. Crisostomo coverage / Endocrine REASON FOR REFERRAL: Hyperglycemia. HISTORY OF PRESENT ILLNESS: Mr. Limon is a pleasant 68-year-old gentleman with hyperglycemia. The patient presented to [facility] on December 24, 2018 when he checked his blood sugar earlier in the day. He took 50 units of his insulin today. He says that his glucose was reading 584. He came to emergency room for evaluation. When he had testing done in the emergency room, he had 132 sodium, 5.1 potassium, 20 bicarbonate, 48 BUN, creatinine 2.5, glucose 699. 10 white count, 30 hematocrit, 176 platelets. Due to the high glucose 699, he was admitted. He has been urinating a little bit more frequent recently. He denies any change in his eating habits. He states he takes his diabetes medicines as asked. He says for the last three weeks, his blood sugar has been higher. The patient has had diabetes for 10 years. Recently, he is on Jentadueto 2.06/999 mg one tablet twice daily, NovoLog 70/30, 40 units in a.m. and 25 units in p.m., pioglitazone 30 mg h.s., gabapentin 300 mg t.i.d. He was admitted once in his life for diabetes three years ago, but he has never had DKA nor ICU admits for diabetes that he knows. PAST MEDICAL HISTORY: Hypertension, diabetes, heart attack, coronary artery disease, GERD, hyperlipidemia, CKD, psoriasis, peripheral vascular disease, status post left leg stents to aorta 2008, peptic ulcer disease, carotid stenosis, gastritis, MS, status post PCI. MEDICATIONS: Medicine list reviewed per the chart record. ALLERGIES: SITAGLIPTIN, CANAGLIFLOZIN, EMPAGLIFLOZIN. FAMILY HISTORY: Noncontributory. SOCIAL HISTORY: No smoking, no drinking. No drugs reported. REVIEW OF SYSTEMS: GENERAL: No weight changes. OPHTHALMOLOGIC: No vision blurriness. ENT: No mouth ulcers. ENDOCRINE: No known thyroid disease. PULMONARY: No asthma. CARDIAC: No recent heart attack. : No blood in urine. GI: No recent GI bleed. MUSCULOSKELETAL: Mild arthritis. IMMUNOLOGIC: No history of lupus. NEUROLOGIC: No seizures. OBJECTIVE: VITAL SIGNS: Currently afebrile, vital signs noted, reviewed per the chart record. GENERAL: In no acute distress. Alert and calm, just slightly tired and pale. HEENT: Normocephalic, atraumatic. NECK: Supple. Throat midline. LUNGS: Bilateral air entry, no wheezing. CARDIOVASCULAR: S1, S2. No murmurs, rubs, or gallops. ABDOMEN: Soft, nontender. EXTREMITIES: No clubbing, no cyanosis. There is no edema. INTEGUMENT: No rash or purpura. LABORATORY DATA: Labs reviewed per the chart record. The anion gap was 15. Chest x-ray, clear lungs. IMPRESSION AND PLAN: 1. Hyperglycemia, probably more hyperosmolar hyperglycemic state spectrum. No definite DKA. 2. Diabetes, probably chronically uncontrolled. 3. Acute kidney failure. 4. Coronary artery disease, status post myocardial infarction. 5. Hypertension. 6. Gastroesophageal reflux disease. 7. Hyperlipidemia. 8. Possible psoriasis reported. 9. Peripheral vascular disease. Admit to medicine floor. Give more insulin. Follow up as kidney function improves. Check thyroid state. Check hemoglobin A1c. If electrolytes are consistently altered, we will check for [place]'s, but the patient grossly does not look like he has [place] syndrome. Thank you very much. This is a coverage for Dr. Crisostomo. Please call for questions to Dr. Angel. MD RENATA Gupta/MODMaciel /[id number] MTDD
[2018-12-25 03:35] LABS: ALBUMIN 2.9 g/dL (3.5-5.0); ALBUMIN/GLOBULIN RATIO 1.1 (0.8-2.0); ANION GAP 12.5 mmol/L (8-16); CALCIUM 8.7 mg/dL (8.4-10.2); CHOL/HDL RATIO 5.1 (3.9-4.7); CREATININE, SERUM 1.65 mg/dL (0.72-1.25); POTASSIUM 4.5 mmol/L (3.5-5.1)
[2018-12-25 03:57] LABS: THYROID STIMULATING HORMONE 0.727 uIU/mL (0.350-4.940)
[2018-12-25] MEDS: SODIUM CHLORIDE 0.9% 1000ML 1,000 ML IV SCH ×3 (04:29→23:38)
--- NOTE | 2018-12-25 07:36 | NUR ---
patient endorsed to next shift for continuity of care.
[2018-12-25] MEDS: INSULIN LISPRO 100 UNIT/1 ML 3ML VIAL SQ SCH ×4 (08:15→21:48)
[2018-12-25] MEDS: FAMOTIDINE 20 MG TAB PO SCH ×2 (08:15→16:56)
[2018-12-25] MEDS: PENTOXIFYLLINE 400 MG TAB CR PO SCH ×2 (08:15→16:56)
[2018-12-25] MEDS: GABAPENTIN 300 MG CAP PO SCH ×3 (08:15→21:23)
[2018-12-25] MEDS: INSULIN ASPART 70/30 100 UNITS/ML VIAL SC SCH ×2 (08:15→16:56)
[2018-12-25] MEDS: FERROUS SULFATE 325 MG TAB PO SCH (08:15)
[2018-12-25] MEDS: CARVEDILOL 3.125 MG TAB PO SCH ×2 (08:15→16:56)
[2018-12-25 08:44] LABS: BILIRUBIN,URINE NEGATIVE (NEGATIVE); CLARITY,URINE CLEAR (CLEAR); COLOR,URINE YELLOW (YELLOW); KETONES,URINE NEGATIVE (NEGATIVE); LEUKOCYTE ESTERASE ,URINE NEGATIVE (NEGATIVE); NITRITE,URINE NEGATIVE (NEGATIVE); PROTEIN,URINE DIPSTICK NEGATIVE (NEGATIVE); URINE UROBILINOGEN 0.2 mg/dL (0.2 - 1)
[2018-12-25 09:04] LABS: BACTERIA,URINE FEW /HPF; EPITHELIAL CELLS,URINE RARE /LPF; RBC,URINE 0-5 /HPF (0-5); WBC,URINE (MAN) 0-5 /HPF (0-5)
--- NOTE | 2018-12-25 11:51 | NUR ---
Dr Crisostomo Coverage Date: 12/25/2018 SUBJECTIVE: patient arrived today, notified us that patient on higher doses of insulin recently. eating well no nausea ROS: no bleeding. OBJECTIVE: VITAL SIGNS: vital signs noted, reviewed GENERAL: NAD, alert calm ABDOMEN: Soft, nontender. EXTREMITIES: No clubbing, no cyanosis. no edema. INTEGUMENT: No rash or purpura. LABORATORY DATA: k 4., ho2 21, cr 1.65 IMPRESSION AND PLAN: 1. Hyperglycemia, probably more hyperosmolar hyperglycemic spectrum. No definite DKA. 2. Diabetes, chronically uncontrolled as suspected 3. Acute kidney failure, improving 4. Coronary artery disease, hx myocardial infarction. 5. Hypertension. 6. Gastroesophageal reflux disease. 7. Hyperlipidemia. 8. psoriasis reported. 9. Peripheral vascular disease. Upadjust insulin. Follow up as kidney function improves. Thyroid screening normal Hemoglobin A1c 10.9% Thank you very much. This is coverage for Dr. Crisostomo.
[2018-12-25] MEDS ORDERED: INSULIN ASPART 70/30 100 UNITS/ML VIAL SC ONE (12:00)
--- NOTE | 2018-12-25 16:23 | NUR ---
Notified Dr. Juares BS level of 80. Orders received to give 20 units of Novolog.
--- NOTE | 2018-12-25 19:35 | NUR ---
BEDSIDE SHIFT REPORT RECEIVED. PATIENT IS RESTING IN BED, AAOX3. RESP EVEN AND UNLABORED. NO ACUTE DISTRESS NOTED. CALL LIGHT WITH IN EASY REACH. PT DENIES NEEDS AT THIS TIME. BED LOW/LOCKED. SIDE RAILS X2. CONTINUE TO MONITOR CLOSELY
[2018-12-25] MEDS ORDERED: PIOGLITAZONE HCL 15 MG TAB PO SCH (21:00)
[2018-12-25] MEDS: CLOPIDOGREL BISULFATE 75 MG TAB PO SCH (21:23)
[2018-12-25] MEDS: ASPIRIN 81 MG CHEW TAB PO SCH (21:23)
[2018-12-25] MEDS: LISINOPRIL 2.5 MG TAB PO SCH (21:24)
[2018-12-25] MEDS: ATORVASTATIN 40 MG TAB PO SCH (21:24)
[2018-12-26 00:36] VITALS: BP 108/53
[2018-12-26 04:34] LABS: BASOPHILS % 0.5 % (0.0-1.0); EOSINOPHILS # (AUTO) 0.1 (0.0-0.4); EOSINOPHILS % 1.2 % (0.0-6.0); HEMATOCRIT 33.3 % (38.2-49.6); HEMOGLOBIN 10.8 g/dL (14.0-18.0); LYMPHOCYTES # (AUTO) 1.6 (1.0-3.2); LYMPHOCYTES % 20.7 % (18.0-39.1); MEAN CORPUSCULAR HEMOGLOBIN 31.1 pg (28-32); MEAN CORPUSCULAR HGB CONC 32.4 g/dL (31-35); MONOCYTES # (AUTO) 0.7 (0.2-0.8); MONOCYTES % 9.2 % (4.4-11.3); NEUTROPHILS # (AUTO) 5.1 (2.1-6.9); NEUTROPHILS % 67.6 % (38.7-80.0); PLATELET COUNT 151 x10e3/uL (140-360); RED BLOOD COUNT 3.47 x10e6/uL (4.3-5.7); RED CELL DISTRIBUTION WIDTH 13.8 % (11.7-14.4)
[2018-12-26 04:49] LABS: ANION GAP 11.1 mmol/L (8-16); CREATININE, SERUM 1.39 mg/dL (0.72-1.25); POTASSIUM 4.1 mmol/L (3.5-5.1)
[2018-12-26 05:50] VITALS: BP 137/61
[2018-12-26 08:06] VITALS: BP 147/65
[2018-12-26] MEDS: GABAPENTIN 300 MG CAP PO SCH ×2 (08:24→16:35)
[2018-12-26] MEDS: FERROUS SULFATE 325 MG TAB PO SCH (08:24)
[2018-12-26] MEDS: PENTOXIFYLLINE 400 MG TAB CR PO SCH (08:24)
[2018-12-26] MEDS: CARVEDILOL 3.125 MG TAB PO SCH (08:24)
[2018-12-26] MEDS: INSULIN LISPRO 100 UNIT/1 ML 3ML VIAL SQ SCH ×2 (08:24→12:26)
[2018-12-26] MEDS: FAMOTIDINE 20 MG TAB PO SCH (08:25)
[2018-12-26] MEDS: INSULIN ASPART 70/30 100 UNITS/ML VIAL SC SCH (08:25)
[2018-12-26 08:26] VITALS: BP 147/65
[2018-12-26] MEDS: SODIUM CHLORIDE 0.9% 1000ML 1,000 ML IV SCH (08:54)
--- NOTE | 2018-12-26 11:54 | NUR ---
Dr Crisostomo Coverage Date: 12/26/2018 SUBJECTIVE: patient continues to eat well 8 am 180 FS 11 am 138 FS patient seen by dietary ROS: no bleeding. OBJECTIVE: VITAL SIGNS: vital signs noted, reviewed GENERAL: NAD, alert calm ABDOMEN: Soft, nontender. EXTREMITIES: No clubbing, no cyanosis. no edema. INTEGUMENT: No rash or purpura. LABORATORY DATA: per emr IMPRESSION AND PLAN: 1. Hyperglycemia, probably more hyperosmolar hyperglycemic spectrum. No definite DKA. 2. Diabetes, chronically uncontrolled 3. Acute kidney failure, improving 4. Coronary artery disease, hx myocardial infarction. 5. Hypertension. 6. Gastroesophageal reflux disease. 7. Hyperlipidemia. 8. psoriasis reported. 9. Peripheral vascular disease. follow on same insulin. Follow up as kidney function improves. Thyroid screening normal Hemoglobin A1c 10.9% dietary consult done Thank you very much. This is coverage for Dr. Crisostomo.
[2018-12-26 12:00] VITALS: BP 111/54
--- NOTE | 2018-12-26 13:23 | NUR ---
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 Pt reports that he takes oral medication and insulin as scheduled at home. 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 Pt receptive to diet education at time of visit. Pt reports good appetite and intake, denies GI distress or wt loss. Pt receptive to diet education at time of visit. Pt educated on CHO sources, CHO serving sizes, foods to avoid, and meal planning. Pt provided with diet education materials. All questions and concerns addressed at time of visit. Chart reviewed. Labs and meds reviewed. Will continue to monitor. Current Diet: 1800 ADA Malnutrition Evaluation (12/26) The patient does not meet criteria for a specified degree of malnutrition at this time. Will re-evaluate at follow-up as appropriate. Diet Education Needs Assessment: Diet education indicated, pt receptive- diet education completed 12/26. Learner(s): pt Barriers: none Cultural/Language Modifications: none Readiness: ready Method: handouts, discussion Topics: DM2 nutrition therapy, CHO counting, CHO serving sizes, label reading, meal planning Understanding/Compliance: Diet tolerance: tolerating po Nutrition Care Level: low Signed: Conchis Andrew RD, LD, [facility]
[2018-12-26 16:00] VITALS: BP 150/66
--- NOTE | 2018-12-26 16:16 | NUR ---
Discharge instructions given to the patient, he verbalized understanding. 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 IV was removed from right forearm with tip intact.
--- NOTE | 2018-12-26 17:20 | NUR ---
Patient left the floor via wheelchair. He is discharged home.
--- NOTE | 2018-12-26 20:11 | Discharge Summary ---
CONSULTING PHYSICIAN: Dr. Codey Crisostomo, cytometry technologist. CHIEF COMPLAINT: Dehydration, hyperglycemia, renal insufficiency. HOSPITAL COURSE: Mr. Limon is pleasant 68-year-old gentleman, who got admitted with hyperglycemia. The patient presented to [facility] on December 24, 2018, with blood sugar reading of 584. According to the patient report, he is taking insulin of 50 units at night and 28 units of insulin during the day time. On arrival to the emergency room, his sodium was 132, potassium was 5.1, BUN was 48, creatinine was 2.5, and glucose 699, for which he received IV fluids and insulin. His repeat lab on 12/26/2018, the sodium was 143, potassium was 4.1, BUN was 30, creatinine was 1.39, and glucose was 179, which has improved. His hemoglobin A1c was 10.9. He got evaluated by cytometry technologist and his medication, NovoLog 70/30 dose was adjusted to 50 units in the a.m. and 28 units at bedtime along with Actos 30 mg at bedtime. His vital signs include temperature 96.7, heart rate 60, blood pressure 147/65, and oxygen saturation 96%. The patient is currently stable and has been cleared by cytometry technologist for discharge. MEDICATIONS: Include: 1. Aspirin 81 mg daily. 2. Atorvastatin 40 mg daily. 3. Coreg 3.125 mg twice daily. 4. Plavix 75 mg daily. 5. Ferrous sulfate 325 mg daily. 6. Neurontin 300 mg three times a day. 7. Lisinopril 2.5 mg daily. 8. Pentoxifylline 400 mg twice daily. 9. Actos 30 mg at bedtime. 10. Carafate 1 g three times a day. PHYSICAL EXAMINATION: HEENT: Pupils are equal, round, and reactive to light. NECK: Supple. CHEST: Clear to auscultation. CARDIAC: Regular rhythm and rate. No murmurs. ABDOMEN: Soft. EXTREMITIES: Normal range of motion. No edema. SKIN: Dry and intact. NEUROLOGIC: Cranial nerves are intact. PSYCHIATRIC: Normal mood and affect. LABORATORY DATA: Sodium 143, potassium 4.1, chloride 112, CO2 is 24, BUN 30, creatinine 1.39, and glucose is 179. WBCs 7.59, hemoglobin 10.8, and hematocrit 33.3. DIAGNOSES: 1. Uncontrolled type 2 diabetes. 2. Hypertension. 3. Hyperlipidemia due to type 2 diabetes. 4. Severe carotid stenosis. No intervention. He takes aspirin and Plavix at home. 5. Chronic kidney disease. The patient upon discharge stable. He had dietitian consulted. Followup with primary care physician in 1 week and cytometry technologist in 1 week. Dictated by Lamar Kim NP MD DARLEEN Harrison/MARIAM /[id number]
== END 2018-12-26 17:26 | disposition home or self-care (01) ==
LOC: ER 13:33 → ERHOLD 17:23 → MED/SURG2 18:10
PROVIDERS: ADMIT Internal Medicine; ATTEND Internal Medicine
DX: E11.65 Type 2 diabetes mellitus with hyperglycemia (principal); N17.9 Acute kidney failure, unspecified; Z88.8 Allergy status to other drugs, medicaments and biological substances; Z79.4 Long term (current) use of insulin; I25.2 Old myocardial infarction; Z87.440 Personal history of urinary (tract) infections; E78.5 Hyperlipidemia, unspecified; K21.9 Gastro-esophageal reflux disease without esophagitis; E11.22 Type 2 diabetes mellitus with diabetic chronic kidney disease; I12.9 Hypertensive chronic kidney disease with stage 1 through stage 4 chronic kidney disease, or unspecified chronic kidney disease; N18.9 Chronic kidney disease, unspecified; Z95.5 Presence of coronary angioplasty implant and graft; Z95.820 Peripheral vascular angioplasty status with implants and grafts; Z82.49 Family history of ischemic heart disease and other diseases of the circulatory system; E87.1 Hypo-osmolality and hyponatremia; Z80.9 Family history of malignant neoplasm, unspecified; Z82.3 Family history of stroke; I65.29 Occlusion and stenosis of unspecified carotid artery; I25.10 Atherosclerotic heart disease of native coronary artery without angina pectoris; E11.51 Type 2 diabetes mellitus with diabetic peripheral angiopathy without gangrene
CPT/HCPCS: 36415 ×3; 36600; 71045; 80048; 80053 ×2; 80061; 81001 ×2; 82550; 82553; 82805; 82948 ×3; 83036; 84443; 84484; 85025 ×3; 99284; G0378 ×3; J1815; J7030 ×3

== ENCOUNTER 2019-01-05 09:15 | Outpatient (RCR) | payer BC, MEDICARE ==
[~2019-01-05 09:15] MED LIST changes: +GABAPENTIN300 MG PO; +NOVOLOG MI100 UNIT/1 SQ; +PIOGLITAZONE HC45 MG PO
== END 2019-01-06 ==
LOC: PT 09:15
PROVIDERS: ATTEND Specialist
DX: M75.02 Adhesive capsulitis of left shoulder (principal); M77.9 Enthesopathy, unspecified